=== PATIENT | female | born 1965 | race Two or more races ===

== ENCOUNTER 2020-03-05 08:37 | Day surgery (SDC) | payer BC ==
[~2020-03-05] VITALS: Ht 162.6 cm; Wt 58.5 kg
[2020-03-05 09:00] VITALS: BP 117/76
[2020-03-05] MEDS ORDERED: LOSA25TA41 PO (09:25)
[2020-03-05] MEDS ORDERED: normal saline 1000ml 1,000 ML IV SCH (10:38)
[2020-03-05 10:57] VITALS: BP 133/79
[2020-03-05 11:00] VITALS: BP 124/76
[2020-03-05 11:15] VITALS: BP 110/71
[2020-03-05 11:30] VITALS: BP 117/79
[2020-03-05 11:45] VITALS: BP 122/74
== END 2020-03-05 12:05 | disposition home or self-care (01) ==
LOC: U 08:37 → MED 3N 08:37 → U 12:05
PROVIDERS: ATTEND Radiology Diagnostic Radiology
DX: R59.0 Localized enlarged lymph nodes (principal); C56.2 Malignant neoplasm of left ovary; C56.1 Malignant neoplasm of right ovary; C77.0 Secondary and unspecified malignant neoplasm of lymph nodes of head, face and neck; I10 Essential (primary) hypertension; Z90.710 Acquired absence of both cervix and uterus; Z72.89 Other problems related to lifestyle; Z79.899 Other long term (current) drug therapy
CPT/HCPCS: 10005; 38505